=== PATIENT | male | born 1995 | race Caucasian/White ===

== ENCOUNTER 2018-06-18 14:44 | Observation (INO) | payer BC ==
[~2018-06-18] VITALS: Ht 190.5 cm; Wt 110.4 kg
[2018-06-18 15:35] LABS: HEMATOCRIT 45.6 % (38.0-50.0); HEMOGLOBIN 16.3 G/DL (12.5-16.6); MCH 30.3 PG (29.0-34.0); MCHC 35.7 G/DL (30.0-36.0); MCV 84.8 FL (86-99); PLATELET COUNT 290 K/uL (156-360); RBC DIS.WIDTH-SD 36.3 % (39-53); RED BLOOD COUNT 5.38 M/uL (4.00-5.50); WHITE BLOOD COUNT 17.3 K/uL (4.1-10.2)
[2018-06-18 15:50] LABS: ALBUMIN 4.7 g/dL (3.2-4.8); CHLORIDE 102 mEq/L (99-109); POTASSIUM 4.5 mEq/L (3.7-5.4); SODIUM 139 mEq/L (136-147)
[2018-06-18 15:51] LABS: APPEARANCE CLEAR ((CLEAR)); BILIRUBIN NEGATIVE; BLOOD NEGATIVE; COLOR YELLOW ((YELLOW)); GLUCOSE (STRIP) NEGATIVE; KETONES NEGATIVE; LEUKOCYTES NEGATIVE; NITRITE NEGATIVE; PROTEIN (STRIP) NEGATIVE; SPECIFIC GRAVITY 1.014 (1.000-1.030); UCUL ADDED? NO; UROBILINOGEN 0.2 MG/DL (0.2-1.0)
[2018-06-18 15:52] LABS: GLUCOSE 111 mg/dL (70-99)
[2018-06-18 15:53] LABS: TOTAL PROTEIN 7.9 g/dL (6.4-8.3)
[2018-06-18 15:54] LABS: TOTAL BILIRUBIN 0.8 mg/dL (0.0-1.0)
[2018-06-18 15:56] LABS: ALKALINE PHOSPHATASE 83 IU/L (3-129); CREATININE 1.1 mg/dL (0.6-1.3); GFR ESTIMATE (CALCULATED) > 59 mL/min/ (58.99-99999)
[2018-06-18 15:57] LABS: UREA NITROGEN (BUN) 21 mg/dL (9-23)
[2018-06-18 15:58] LABS: AST (GOT) 19 IU/L (2-34)
[2018-06-18 15:59] LABS: ALT (GPT) 26 IU/L (3-49)
[2018-06-18] MEDS ORDERED: FLONASE16 G1 BOTH NARES (18:50)
[2018-06-18] MEDS ORDERED: ZYRTEC10 M3 PO (18:50)
[2018-06-18 20:04] VITALS: BP 127/73
[2018-06-19 00:02] VITALS: BP 121/64
[2018-06-19 03:42] VITALS: BP 120/56
[2018-06-19 06:21] LABS: BASOPHIL (%) 0.2 % (0-1); EOSINOPHIL (%) 1.5 % (0-5); EOSINOPHIL COUNT 0.1 K/uL (0-0.3); HEMOGLOBIN 15.1 G/DL (12.5-16.6); IMMATURE GRANULOCYTE (%) 0.4 % (0.0-0.7); LYMPHOCYTE (%) 17.3 % (15-42); LYMPHOCYTE COUNT 1.4 K/uL (1.0-2.8); MCH 29.5 PG (29.0-34.0); MCHC 34.3 G/DL (30.0-36.0); MCV 85.9 FL (86-99); MONOCYTE (%) 12.5 % (3-12); NEUTROPHIL (%) 68.1 % (45-76); NEUTROPHIL COUNT 5.5 K/uL (1.8-6.4); PLATELET COUNT 219 K/uL (156-360); RBC DIS.WIDTH-CV 11.9 % (11.8-14.6); RBC DIS.WIDTH-SD 37.2 % (39-53); RED BLOOD COUNT 5.12 M/uL (4.00-5.50)
[2018-06-19 06:44] LABS: CHLORIDE 103 MEQ/L (99-109); CREATININE 1.2 MG/DL (0.6-1.3); GFR ESTIMATE (CALCULATED) > 59 mL/min/ (58.99-99999); GLUCOSE 99 mg/dL (70-99); POTASSIUM 4.7 MEQ/L (3.7-5.4); SODIUM 140 MEQ/L (136-147); UREA NITROGEN (BUN) 15 mg/dL (9-23)
[2018-06-19 07:30] VITALS: BP 119/60
[2018-06-19] MEDS ORDERED: HYDROCODON-ACE1 EAC7 PO (11:06)
[2018-06-19 13:24] VITALS: BP 132/77
[2018-06-19 16:28] VITALS: BP 124/71
[2018-06-19 19:37] VITALS: BP 136/80
[2018-06-20 00:17] VITALS: BP 157/80
[2018-06-20 03:55] VITALS: BP 149/80
[2018-06-20 06:58] LABS: HEMATOCRIT 41.2 % (38.0-50.0); HEMOGLOBIN 14.3 G/DL (12.5-16.6); MCH 29.6 PG (29.0-34.0); MCHC 34.7 G/DL (30.0-36.0); MCV 85.3 FL (86-99); PLATELET COUNT 247 K/uL (156-360); RED BLOOD COUNT 4.83 M/uL (4.00-5.50); WHITE BLOOD COUNT 11.4 K/uL (4.1-10.2)
[2018-06-20 07:21] LABS: CHLORIDE 102 MEQ/L (99-109); CREATININE 0.8 MG/DL (0.6-1.3); GFR ESTIMATE (CALCULATED) > 59 mL/min/ (58.99-99999); GLUCOSE 115 mg/dL (70-99); POTASSIUM 3.9 MEQ/L (3.7-5.4); SODIUM 137 MEQ/L (136-147); UREA NITROGEN (BUN) 10 mg/dL (9-23)
[2018-06-20 08:58] VITALS: BP 148/95
[2018-06-20 12:11] VITALS: BP 133/87
== END 2018-06-20 15:05 | disposition home or self-care (01) ==
LOC: EME 14:44 → 2EAST 18:32 → EDOF 18:32 → ENRESERV 18:34 → CANRESERV 19:06 → ENRESERV 19:12 → 2EAST 19:48
PROVIDERS: Student in an Organized Health Care Education/Training Program
PROC: 0DTJ4ZZ Resection of Appendix, Percutaneous Endoscopic Approach (ICD-10-PCS; principal; 2018-06-19)
DX: K35.80 Unspecified acute appendicitis (principal); E66.9 Obesity, unspecified; Z68.30 Body mass index [BMI] 30.0-30.9, adult
CPT/HCPCS: 74176; 80048; 80053; 81003; 85025; 85027; 88304; 99281; 99284; G0378; J1170; J1885; J2250; J2405; J2543; J3010; J7120; S0074